=== PATIENT | female | born 1945 | race African-American/Black ===

== ENCOUNTER 2021-02-14 13:29 | Inpatient (IN) | payer OTHER, MEDICAID ==
[~2021-02-14] VITALS: Ht 165.1 cm; Wt 80.7 kg
[2021-02-14] MEDS ORDERED: ACETAMINOPHEN 325MG TABLET PO STA (13:36)
[2021-02-14] MEDS ORDERED: PIPERACILLIN/TAZ 3.375G PREMIX 50 ML IV ONE (14:15)
[2021-02-14] MEDS ORDERED: VANCOMYCIN 1 G PREMIX 200 ML IV ONE (14:15)
[2021-02-14] MEDS ORDERED: SODIUM CHLORIDE 0.9% 1,000 ML IV ONE (14:15)
[2021-02-14 14:29] LABS: HEMATOCRIT. 37.5 % (36.0-48.0); HEMOGLOBIN. 12.5 g/dL (12.0-16.0); MEAN CORPUSCULAR HEMOGLOBIN 31.5 pg (28.0-32.0); MEAN CORPUSCULAR VOLUME 94.2 fL (81.0-99.0); MEAN PLATELET VOLUME 8.1 fl (7.4-10.4); PLATELET 347 x1000/uL (130-400); RED BLOOD CELL COUNT 3.98 mill/uL (4.2-5.4); RED CELL DISTRIBUTION WIDTH 16.8 % (11.6-14.6)
[2021-02-14 14:37] LABS: CHLORIDE 110 mEq/L (98-107)
[2021-02-14 14:39] LABS: INR 1.3; PROTHROMBIN TIME 13.6 sec (9.6-11.0)
[2021-02-14 14:41] LABS: ETHANOL BLOOD < 10 mg/dL
[2021-02-14 14:58] LABS: PLATELET ESTIMATE NORMAL
[2021-02-14 16:24] LABS: CLARITY URINE TURBID (CLEAR); COLOR URINE DARK YELLOW (YELLOW); KETONES URINE TRACE (NEGATIVE); LEUKOCYTE ESTERASE URINE TRACE (NEGATIVE); NITRITE URINE NEGATIVE (NEGATIVE); OCCULT BLOOD URINE NEGATIVE (NEGATIVE); PROTEIN URINE TRACE (NEGATIVE); SPECIFIC GRAVITY URINE 1.014 (1.005-1.030)
[2021-02-14 16:39] LABS: *BARBITURATES SCREEN URINE NEGATIVE (NEGATIVE)
[2021-02-14 16:40] LABS: *AMPHETAMINES SCREEN URINE NEGATIVE (NEGATIVE); *BENZODIAZEPINES SCREEN URINE NEGATIVE (NEGATIVE); *COCAINE SCREEN URINE NEGATIVE (NEGATIVE); METHADONE URINE SCREEN NEGATIVE (NEGATIVE); OPIATES URINE SCREEN NEGATIVE (NEGATIVE); PHENCYCLIDINE URINE SCREEN NEGATIVE (NEGATIVE)
[2021-02-14 16:41] LABS: CANNABINOID URINE SCREEN PRESUMTIVE POSITIVE (NEGATIVE)
[2021-02-14] MEDS ORDERED: ONDANSETRON HCL 4MG/2ML INJ IV PRN (17:00)
[2021-02-14] MEDS ORDERED: DOCUSATE SODIUM 100MG CAPSULE PO PRN (17:00)
[2021-02-14] MEDS ORDERED: GUAIFENESIN 200MG/10ML SUGAR FREE UDC PO PRN (17:00)
[2021-02-14] MEDS ORDERED: CLONIDINE 0.1MG TABLET PO PRN (17:00)
[2021-02-14] MEDS ORDERED: SODIUM CHLORIDE 0.9% 1000ML BAG (SEPSIS BOLUS) IV NR (17:00)
[2021-02-14] MEDS ORDERED: ENOXAPARIN 40MG/0.4ML SYR SUBCUT SCH (17:00)
[2021-02-14] MEDS ORDERED: NITROGLYCERIN 0.4MG TABLET SL SL PRN (17:00)
[2021-02-14] MEDS ORDERED: MAGNESIUM/ALUMINUM HYDROXIDE/SIMETHICONE 30ML UDC PO PRN (17:00)
[2021-02-14] MEDS ORDERED: KETOROLAC 15MG/ML VIAL IV PRN (17:00)
[2021-02-14] MEDS ORDERED: ACETAMINOPHEN 325MG TABLET PO PRN ×2 (17:00)
[2021-02-14] MEDS ORDERED: ZOLPIDEM TARTRATE 5MG TABLET PO PRN (17:00)
[2021-02-14] MEDS ORDERED: VANCOMYCIN 750 MG PREMIX 150 ML IV NR (18:00)
[2021-02-14] MEDS ORDERED: ENOXAPARIN 30MG/0.3ML SYR SUBCUT SCH (18:00)
[2021-02-14 21:30] VITALS: BP 105/75
[2021-02-14] MEDS ORDERED: ENOXAPARIN 60MG/0.6ML SYR SUBCUT SCH (22:00)
[2021-02-14] MEDS ORDERED: PIPERACILLIN/TAZ 3.375G PREMIX 50 ML IV SCH (22:30)
[2021-02-14] MEDS: FAMOTIDINE 20MG TABLET PO SCH (22:31)
[2021-02-14] MEDS: ASCORBIC ACID 500 MG TABLET PO SCH (22:31)
[2021-02-15] VITALS (12 sets, daily range): BP systolic 92–112; BP diastolic 61–77
[2021-02-15 00:54] LABS: CREATINE KINASE 80 IU/L (26-192)
[2021-02-15 00:55] LABS: CREATINE KINASE MB FRACTION < 1.0 ng/mL (0.5-3.6)
[2021-02-15] MEDS: PIPERACILLIN/TAZOBACTAM 3.375G in DEXT 5% WATER 50ML IV SCH ×4 (01:22→23:12)
[2021-02-15 08:15] LABS: CREATINE KINASE 71 IU/L (26-192)
[2021-02-15 08:17] LABS: CREATINE KINASE MB FRACTION 1.3 ng/mL (0.5-3.6)
[2021-02-15] MEDS: ZINC SULFATE 220 MG ( 50 ) CAPSULE PO SCH (09:22)
[2021-02-15] MEDS: ASCORBIC ACID 500 MG TABLET PO SCH ×2 (09:22→21:18)
[2021-02-15] MEDS: CHOLECALCIFEROL (D3) 1000 UNIT TABLET PO SCH (09:23)
[2021-02-15] MEDS: ASPIRIN 325MG EC TABLET PO SCH (09:33)
[2021-02-15] MEDS ORDERED: ENOXAPARIN 80MG/0.8ML SYR SUBCUT SCH (21:00)
[2021-02-15] MEDS: FAMOTIDINE 20MG TABLET PO SCH (21:18)
[2021-02-15] MEDS: VANCOMYCIN 1 G PREMIX 200 ML IV SCH (23:49)
[2021-02-16] VITALS (12 sets, daily range): BP systolic 97–124; BP diastolic 65–87
[2021-02-16] MEDS ORDERED: POTASSIUM CHLORIDE 20MEQ/PACKET PO NR
[2021-02-16] MEDS: PIPERACILLIN/TAZOBACTAM 3.375G in DEXT 5% WATER 50ML IV SCH ×2 (09:00→17:02)
[2021-02-16] MEDS: CHOLECALCIFEROL (D3) 1000 UNIT TABLET PO SCH (09:01)
[2021-02-16] MEDS: ASPIRIN 325MG EC TABLET PO SCH (09:01)
[2021-02-16] MEDS: ZINC SULFATE 220 MG ( 50 ) CAPSULE PO SCH (09:01)
[2021-02-16] MEDS: ASCORBIC ACID 500 MG TABLET PO SCH ×2 (09:01→22:27)
[2021-02-16] MEDS: VANCOMYCIN 1 G PREMIX 200 ML IV SCH (18:07)
[2021-02-16] MEDS: ENOXAPARIN 80MG/0.8ML SYR SUBCUT SCH (18:07)
[2021-02-16] MEDS: FAMOTIDINE 20MG TABLET PO SCH (22:27)
[2021-02-17] VITALS (12 sets, daily range): BP systolic 93–124; BP diastolic 63–78
[2021-02-17] MEDS: PIPERACILLIN/TAZOBACTAM 3.375G in DEXT 5% WATER 50ML IV SCH ×4 (01:07→23:46)
[2021-02-17] MEDS: ENOXAPARIN 80MG/0.8ML SYR SUBCUT SCH ×2 (05:42→17:39)
[2021-02-17] MEDS: ZINC SULFATE 220 MG ( 50 ) CAPSULE PO SCH (08:54)
[2021-02-17] MEDS: ASCORBIC ACID 500 MG TABLET PO SCH ×2 (08:54→21:20)
[2021-02-17] MEDS: CHOLECALCIFEROL (D3) 1000 UNIT TABLET PO SCH (08:54)
[2021-02-17] MEDS: ASPIRIN 325MG EC TABLET PO SCH (08:57)
[2021-02-17] MEDS: VANCOMYCIN 1 G PREMIX 200 ML IV SCH (12:12)
[2021-02-17] MEDS: FAMOTIDINE 20MG TABLET PO SCH (21:20)
[2021-02-18] VITALS (13 sets, daily range): BP systolic 106–133; BP diastolic 66–92
[2021-02-18] MEDS: VANCOMYCIN 1 G PREMIX 200 ML IV SCH ×2 (05:53→18:46)
[2021-02-18] MEDS: ENOXAPARIN 80MG/0.8ML SYR SUBCUT SCH ×2 (05:54→18:46)
[2021-02-18 06:05] LABS: CHLORIDE 110 mEq/L (98-107)
[2021-02-18 06:13] LABS: VANCOMYCIN TROUGH 5.9 ug/mL (5.0-10.0)
[2021-02-18] MEDS: ASCORBIC ACID 500 MG TABLET PO SCH ×2 (10:40→20:36)
[2021-02-18] MEDS: CHOLECALCIFEROL (D3) 1000 UNIT TABLET PO SCH (10:40)
[2021-02-18] MEDS: ZINC SULFATE 220 MG ( 50 ) CAPSULE PO SCH (10:41)
[2021-02-18] MEDS: ASPIRIN 325MG EC TABLET PO SCH (10:43)
[2021-02-18] MEDS: PIPERACILLIN/TAZOBACTAM 3.375G in DEXT 5% WATER 50ML IV SCH ×3 (10:44→22:32)
[2021-02-18] MEDS ORDERED: POTASSIUM CHLORIDE 20MEQ TABLET SR PO SCH (11:00)
[2021-02-18] MEDS ORDERED: POTASSIUM CHLORIDE INJ 40 MEQ in DEXT 5% WATER 500 ML IV SCH (12:00)
[2021-02-18 15:20] LABS: BASOPHILS % 1.1 % (0.0-2.0); EOSINOPHILS % 1.6 % (0.0-5.0); HEMATOCRIT. 34.8 % (36.0-48.0); HEMOGLOBIN. 10.9 g/dL (12.0-16.0); LYMPHOCYTES % 14.4 % (20.0-50.0); MEAN CORPUSCULAR HEMOGLOBIN 30.9 pg (28.0-32.0); MEAN CORPUSCULAR VOLUME 98.3 fL (81.0-99.0); MONOCYTES % 9.1 % (2.0-8.0); NEUTROPHILS % 73.8 % (40.0-76.0); PLATELET 467 x1000/uL (130-400); RED BLOOD CELL COUNT 3.54 mill/uL (4.2-5.4); RED CELL DISTRIBUTION WIDTH 17.4 % (11.6-14.6)
[2021-02-18] MEDS: FAMOTIDINE 20MG TABLET PO SCH (20:36)
[2021-02-19] VITALS (11 sets, daily range): BP systolic 113–154; BP diastolic 65–100
[2021-02-19] MEDS: VANCOMYCIN 1 G PREMIX 200 ML IV SCH (01:51)
[2021-02-19] MEDS: ENOXAPARIN 80MG/0.8ML SYR SUBCUT SCH ×2 (05:10→17:34)
[2021-02-19] MEDS: PIPERACILLIN/TAZOBACTAM 3.375G in DEXT 5% WATER 50ML IV SCH ×3 (05:10→21:39)
[2021-02-19] MEDS: CHOLECALCIFEROL (D3) 1000 UNIT TABLET PO SCH (09:38)
[2021-02-19] MEDS: ASPIRIN 325MG EC TABLET PO SCH (09:38)
[2021-02-19] MEDS: ASCORBIC ACID 500 MG TABLET PO SCH ×2 (09:38→21:39)
[2021-02-19] MEDS: ZINC SULFATE 220 MG ( 50 ) CAPSULE PO SCH (09:38)
[2021-02-19] MEDS: FAMOTIDINE 20MG TABLET PO SCH (21:39)
[2021-02-20] VITALS (12 sets, daily range): BP systolic 102–147; BP diastolic 54–99
[2021-02-20] MEDS: ENOXAPARIN 80MG/0.8ML SYR SUBCUT SCH ×2 (05:14→17:16)
[2021-02-20] MEDS: CHOLECALCIFEROL (D3) 1000 UNIT TABLET PO SCH (10:28)
[2021-02-20] MEDS: ASCORBIC ACID 500 MG TABLET PO SCH ×2 (10:28→20:41)
[2021-02-20] MEDS: ZINC SULFATE 220 MG ( 50 ) CAPSULE PO SCH (10:28)
[2021-02-20] MEDS: ASPIRIN 325MG EC TABLET PO SCH (10:28)
[2021-02-20] MEDS ORDERED: POTASSIUM CHLORIDE 20MEQ/PACKET PO NR (18:15)
[2021-02-20] MEDS ORDERED: POTASSIUM CHLORIDE INJ 40 MEQ in DEXT 5% WATER 250 ML IV ONE (18:45)
[2021-02-20] MEDS: FAMOTIDINE 20MG TABLET PO SCH (20:41)
[2021-02-21] VITALS (25 sets, daily range): BP systolic 118–163; BP diastolic 46–113
[2021-02-21] MEDS: ENOXAPARIN 80MG/0.8ML SYR SUBCUT SCH ×2 (05:31→18:48)
[2021-02-21] MEDS: ASPIRIN 325MG EC TABLET PO SCH (08:28)
[2021-02-21] MEDS: ASCORBIC ACID 500 MG TABLET PO SCH ×2 (08:28→20:54)
[2021-02-21] MEDS: MULTIVITAMINS,THER W-MINERALS TABLET PO SCH (08:28)
[2021-02-21] MEDS: CHOLECALCIFEROL (D3) 1000 UNIT TABLET PO SCH (08:28)
[2021-02-21] MEDS: ZINC SULFATE 220 MG ( 50 ) CAPSULE PO SCH (08:28)
[2021-02-21] MEDS: FAMOTIDINE 20MG TABLET PO SCH (20:54)
[2021-02-22] VITALS (12 sets, daily range): BP systolic 110–138; BP diastolic 72–87
[2021-02-22] MEDS: ENOXAPARIN 80MG/0.8ML SYR SUBCUT SCH ×2 (06:15→19:09)
[2021-02-22] MEDS: MULTIVITAMINS,THER W-MINERALS TABLET PO SCH (08:35)
[2021-02-22] MEDS: ZINC SULFATE 220 MG ( 50 ) CAPSULE PO SCH (08:35)
[2021-02-22] MEDS: ASPIRIN 325MG EC TABLET PO SCH (08:35)
[2021-02-22] MEDS: CHOLECALCIFEROL (D3) 1000 UNIT TABLET PO SCH (08:36)
[2021-02-22] MEDS: ASCORBIC ACID 500 MG TABLET PO SCH (08:36)
== END 2021-02-22 22:51 | DRG 871 ==
LOC: ER 14:02 → 5EST 14:53 → EDBEDREQ 15:05 → ENRESERV 20:26
PROVIDERS: ADMIT Internal Medicine; ATTEND Internal Medicine
DX: A41.9 Sepsis, unspecified organism (principal); N17.0 Acute kidney failure with tubular necrosis; G92 Toxic encephalopathy; E44.0 Moderate protein-calorie malnutrition; N39.0 Urinary tract infection, site not specified; R65.20 Severe sepsis without septic shock; I10 Essential (primary) hypertension; Z20.822 Contact with and (suspected) exposure to COVID-19; Z68.29 Body mass index [BMI] 29.0-29.9, adult
CPT/HCPCS: 36415; 70551; 71045; 80048; 80053; 80061; 80202; 80305; 80320; 81003; 82140; 82550; 82553; 83036; 83605; 84145; 84484; 85025; 87426; 93005; 93306; 93970; 97162; 97530; 99285; A6261; J1650; J2543; J3370; J3480; J7030; J7040; J7060; G0480